=== PATIENT | female | born 1990 | race Caucasian/White ===

== ENCOUNTER 2018-03-31 15:48 | Emergency (ER) | payer OTHER ==
[2018-03-31] MEDS ORDERED: DEXAMETHASONE 10 MG/ML VIAL PO STA (16:05)
--- NOTE | 2018-03-31 16:08 | ED Physician Documentation ---
PD HPI HEENT - Stated complaint Stated Complaint: L EAR PX - Chief complaint Chief Complaint: Heent - History obtained from History obtained from: Patient - History of Present Illness Timing - onset: How many weeks ago (1) Timing - duration: Weeks (1) Timing - details: Gradual onset, Still present Location: Right ear, Left ear, Sinuses Improves: Medication Associated symptoms: Congestion, Rhinorrhea, Swollen nodes, Cough Similar symptoms before: Has not had sx before Recently seen: Clinic - Additional information Additional information: 27-year-old female has developed a cough and congestion over the past week and she is developed vertigo and a feeling of popping in her ears. Last night about 3 AM she developed pain in the left ear and the pain is kept her awake all night. She is been into see the doctor earlier in the week was diagnosed with vertigo and she continues to have the cough and congestion. Review of Systems Constitutional: reports: Fatigue. denies: Fever Eyes: denies: Decreased vision Ears: reports: Ear pain, Tinnitus/ringing Nose: reports: Rhinorrhea / runny nose, Congestion, Sinus pressure / pain Throat: denies: Sore throat Cardiac: denies: Chest pain / pressure, Palpitations Respiratory: reports: Cough. denies: Dyspnea GI: denies: Vomiting PD PAST MEDICAL HISTORY - Present Medications Home Medications: Ambulatory Orders Medication Instructions Recorded Confirmed Amox/Clav 875/125 [Augmentin] 1 each PO Q12H #20 tablet 03/31/18 Hydrocodone/Acetaminophen 1 - 2 each PO Q6H PRN #14 tablet 03/31/18 [Hydrocodon-Acetaminophen 5-325] Levothyroxine Sodium [Synthroid] 88 mcg PO 03/31/18 - Allergies Allergies/Adverse Reactions: Allergies Allergy/AdvReac Type Severity Reaction Status Date / Time No Known Drug Allergies Allergy Verified 03/31/18 15:54 PD ED PE NORMAL - Vitals Vital signs reviewed: Yes (hypertensive diastolic ) - General General: Alert and oriented X 3, No acute distress, Well developed/nourished - HEENT HEENT: Atraumatic, PERRL, EOMI, Other (The right TM is mildly inflamed with retained landmarks. The left TM is markedly inflamed, bludging and with distortion of the landmarks. 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, No motor deficit, No sensory deficit, Normal speech Eye Opening: Spontaneous Motor: Obeys Commands Verbal: Oriented GCS Score: 15 - Psych Psych: Normal mood, Normal affect Results - Vitals Vitals: Vital Signs - 24 hr 03/31/18 15:52 Temperature 36.9 C Heart Rate 87 Respiratory 16 Rate Blood Pressure 137/97 H O2 Saturation 100 Oxygen O2 Source Room air PD MEDICAL DECISION MAKING - ED course Complexity details: considered differential, d/w patient ED course: 27-year-old female with cough and congestion for the past week has left otitis media on examination and this infection looks like it hurts a lot.. She is administered dexamethasone 10 mg orally we will place her on some Augmentin and I will provide a prescription for some hydrocodone as well as a note for work for 2 days. Departure - Departure Disposition: Home, Self Care Clinical Impression: Otitis media Qualifiers: Otitis media type: suppurative Chronicity: acute Laterality: bilateral Recurrence: not specified as recurrent Spontaneous tympanic membrane rupture: without spontaneous rupture Qualified Code(s): H66.003 - Acute suppurative otitis media without spontaneous rupture of ear drum, bilateral Condition: Stable Instructions: ED Otitis Media Acute Adult Follow-Up: VIVEK SIMPSON DO [Primary Care Provider] - Prescriptions: Amox/Clav 875/125 [Augmentin] 1 each PO Q12H #20 tablet Hydrocodone/Acetaminophen [Hydrocodon-Acetaminophen 5-325] 1 - 2 each PO Q6H PRN #14 tablet PRN Reason: pain Forms: Activity restrictions
[2018-03-31 16:26] VITALS: BP 125/78
== END 2018-03-31 16:24 | disposition home or self-care (01) ==
LOC: ED 15:48
DX: H66.003 Acute suppurative otitis media without spontaneous rupture of ear drum, bilateral (principal)
CPT/HCPCS: 99283

== ENCOUNTER 2018-04-03 17:19 | Emergency (ER) | payer OTHER ==
[2018-04-03] MEDS ORDERED: DEXAMETHASONE 10 MG/ML VIAL PO STA (17:37)
[2018-04-03] MEDS ORDERED: PSEUDOEPHEDRINE 30 MG TABLET PO STA (17:37)
--- NOTE | 2018-04-03 17:41 | ED Physician Documentation ---
PD HPI HEENT - Stated complaint Stated Complaint: LT EAR PX - Chief complaint Chief Complaint: Heent - History obtained from History obtained from: Patient - History of Present Illness Timing - onset: How many days ago (4) Timing - duration: Days (4) Timing - details: Gradual onset Pain level max: 3 Pain level now: 3 Location: Left ear Improves: Nothing Worsens: Swalllowing Associated symptoms: Congestion, Rhinorrhea. No: Trismus, Unable to swallow - Additional information Additional information: Patient was recently seen and started on Augmentin for left acute otitis media. States she is just not improving. No fevers Review of Systems Constitutional: denies: Fever GI: denies: Vomiting : denies: Now EGA PD PAST MEDICAL HISTORY - Past Medical History Past Medical History: No - Past Surgical History Past Surgical History: No - Present Medications Home Medications: Ambulatory Orders Medication Instructions Recorded Confirmed Amox/Clav 875/125 [Augmentin] 1 each PO Q12H #20 tablet 03/31/18 Hydrocodone/Acetaminophen 1 - 2 each PO Q6H PRN #14 tablet 03/31/18 [Hydrocodon-Acetaminophen 5-325] Levothyroxine Sodium [Synthroid] 88 mcg PO 03/31/18 Cetirizine HCl/Pseudoephedrine 1 each PO BID PRN #30 tab.er.12h 04/03/18 [Zyrtec-D Tablet] - Allergies Allergies/Adverse Reactions: Allergies Allergy/AdvReac Type Severity Reaction Status Date / Time No Known Drug Allergies Allergy Verified 03/31/18 15:54 - Social History Does the pt smoke?: No Smoking Status: Never smoker Does the pt drink ETOH?: No Does the pt have substance abuse?: No PD ED PE NORMAL - Vitals Vital signs reviewed: Yes - General General: Alert and oriented X 3, No acute distress - HEENT HEENT: Moist mucous membranes, Pharynx benign, Other (Right tympanic membrane is normal. Left tympanic membrane is erythematous, dull, bulging with loss of landmarks. Purulent fluid present. No mastoid tenderness) - Neck Neck: Supple, no meningeal sign, No adenopathy - Cardiac Cardiac: RRR - Respiratory Respiratory: No respiratory distress, Clear bilaterally - Derm Derm: Warm and dry - Neuro Neuro: Alert and oriented X 3 Results - Vitals Vitals: Vital Signs - 24 hr 04/03/18 04/03/18 17:28 17:48 Temperature 36.2 C L 36.5 C Heart Rate 93 88 Respiratory 18 16 Rate Blood Pressure 145/104 H 122/86 H O2 Saturation 96 99 Oxygen O2 Source Room air PD MEDICAL DECISION MAKING - ED course Complexity details: reviewed old records, considered differential, d/w patient ED course: 27-year-old female presents the emergency department with an ongoing left acute otitis media. Will continue Augmentin at home. Will add a decongestant to see if this helps her symptoms as she is still having nasal congestion. She is well-appearing, nontoxic. Tolerating p.o. without difficulty. No mastoiditis. Patient counseled regarding signs and symptoms for which I believe and urgent re-evaluation would be necessary. Patient with good understanding of and agreement to plan and is comfortable going home at this time This document was made in part using voice recognition software. While efforts are made to proofread this document, sound alike and grammatical errors may occur. Departure - Departure Disposition: 01 Home, Self Care Clinical Impression: Otitis media Qualifiers: Otitis media type: suppurative Chronicity: acute Laterality: left Recurrence: non-recurrent Spontaneous tympanic membrane rupture: without spontaneous rupture Qualified Code(s): H66.002 - Acute suppurative otitis media without spontaneous rupture of ear drum, left ear Condition: Good Instructions: ED Otitis Media Acute Adult Follow-Up: VIVEK SIMPSON DO [Primary Care Provider] - Within 1 week Prescriptions: Cetirizine HCl/Pseudoephedrine [Zyrtec-D Tablet] 1 each PO BID PRN #30 tab.er.12h PRN Reason: nasal congestion Comments: Continue the antibiotics until gone. Return if you worsen. Follow-up with your doctor for further care.
[2018-04-03 17:50] VITALS: BP 122/86
== END 2018-04-03 17:48 | disposition home or self-care (01) ==
LOC: ED 17:19
DX: H66.002 Acute suppurative otitis media without spontaneous rupture of ear drum, left ear (principal)
CPT/HCPCS: 99283; A9270